=== PATIENT | female | born 1975 | race Caucasian/White ===

== ENCOUNTER → 2017-02-18 | Outpatient (CLI) | payer OTHER | END | disposition home or self-care (01) | LOC: CFH 11:54 | PROVIDERS: ATTEND Allergy & Immunology Allergy | DX: J45.909 Unspecified asthma, uncomplicated (principal) | CPT/HCPCS: 71020 ==

== ENCOUNTER → 2017-03-27 | Outpatient (CLI) | payer OTHER | END | disposition home or self-care (01) | LOC: CFH 13:14 | PROVIDERS: ATTEND Allergy & Immunology Allergy | DX: J45.909 Unspecified asthma, uncomplicated (principal) | CPT/HCPCS: 71020 ==

== ENCOUNTER → 2017-05-12 | Outpatient (CLI) | payer OTHER | END | disposition home or self-care (01) | LOC: CFH 09:57 | PROVIDERS: ATTEND Otolaryngology | DX: J32.0 Chronic maxillary sinusitis (principal); J34.2 Deviated nasal septum | CPT/HCPCS: 70486 ==